=== PATIENT | male | born 1940 | race Two or more races ===

== ENCOUNTER 2024-08-29 14:13 | Inpatient (IN) | payer OTHER ==
[~2024-08-29] VITALS: Ht 152.4 cm; Wt 75.3 kg
[2024-08-29] MEDS ORDERED: MONTELUKAST SOD10 MG PO (14:35)
[2024-08-29] MEDS ORDERED: ELIQUIS5 MG PO (14:36)
[2024-08-29] MEDS ORDERED: PREVACID30 MG PO (14:36)
[2024-08-29] MEDS ORDERED: STIOLTO RESPIMAT4 G2 IH (14:36)
[2024-08-29] MEDS ORDERED: TOPROL XL50 M1 PO (14:36)
[2024-08-29] MEDS ORDERED: EZALLOR SPRINKL20 MG PO (14:36)
[2024-08-29] MEDS ORDERED: ENTRESTO 49 MG1 EACH PO (14:37)
[2024-08-29] MEDS ORDERED: ZETIA10 MG PO (14:37)
[2024-08-29] MEDS ORDERED: CHILDREN'S ASPI81 MG PO (14:38)
[2024-08-29] MEDS ORDERED: GRALISE600 MG PO (14:38)
--- NOTE | 2024-08-29 14:42 | NUR ---
PTE ALERTA Y ORIENTADO X3 ES REFERDIO POR LA DRA. MCCRAY NOLE CON HEMOGLOBINA EN 7.5 RESULTADO DE ESTA MANANA. SE MIDEN S/V Y SE UBICA.
[2024-08-29] MEDS ORDERED: FUROsemide 20 MG/2 ML VIAL IV SCH (16:45)
[2024-08-29] MEDS ORDERED: SODIUM CHLORIDE 0.45 % 500 ML IV ONE (16:45)
--- NOTE | 2024-08-29 17:01 | NUR ---
ISAURO ORIENTA A PTE SOBRE TX MEDICO ORDENADO POR JUAN. REALIZA MIKE DE MUESTRAS DE LAB [facility] ORDEN MEDICA Y BAJO MEDIDAS ASEPTICAS. VENOPUNCION X2 LT ARM PATENTE MAYCOL DE EDEMA Y ERITEMA EN H/L. SE ENTREGAN CONTRASTES PO Y SE ORIENTA SOBRE TX A SEGUIR.
[2024-08-29 17:15] LABS: HEMATOCRIT 24.2 % (39.0-48.0); MEAN CELL VOLUME 83.2 fL (80.0-100.00); MEAN CORPUSCULAR HGB CONC 33.1 g/dl (32.0-36.0); PLATELET COUNT 253 K/uL (150-450); RED BLOOD COUNT 2.91 M/uL (4.00-6.00); RED CELL DISTRIBUTION WIDTH 16.4 % (11.5-14.5)
[2024-08-29 17:16] LABS: MEAN CORPUSCULAR HEMOGLOBIN 27.4 pg (27.00-32.0)
[2024-08-29 17:30] LABS: INR 1.17; PARTIAL THROMBOPLASTIN TIME 28.7 SECONDS (22.0-34.0); PROTHROMBIN TIME 12.6 SECONDS (9.0-11.5)
[2024-08-29 17:40] LABS: ALBUMIN 3.6 gm/dL (3.4-5.0); BILIRUBIN TOTAL 0.36 mg/dL (0.3-1.2); CALCIUM 8.7 mg/dL (8.5-10.1); CREATININE SERUM 0.79 mg/dL (0.70-1.30); GFR 93.9; GLOBULINA 3.4 G/DL (2.4-3.5); POTASSIUM 4.32 mEq/L (3.5-5.1)
[2024-08-29 19:15] LABS: URINE APPEARANCE Clear; URINE BILIRRUBIN Negative (NEGATIVE); URINE BLOOD Negative; URINE COLOR Yellow; URINE GLUCOSE Negative (NEGATIVE); URINE KETONE Negative (NEGATIVE); URINE LEUKOCYTE Negative; URINE NITRATE Negative; URINE PROTEIN Negative (NEGATIVE); URINE UROBILINOGEN 0.2 E.U./dl
[2024-08-29 19:18] LABS: URINE BACTERIA 15.1 uL (0.0-1933); URINE EPITHELIAL CELLS 2.6 uL (0.0-38.8)
[2024-08-29 19:21] LABS: URINE CAST 0.15 uL (0.0-1.40); URINE RBC 1.5 uL (0.0-20.8); URINE WBC 1.2 uL (0.0-23.2)
[2024-08-29] MEDS ORDERED: 0.9 % SODIUM CHLORIDE 1,000 ML IV SCH (19:30)
[2024-08-29] MEDS ORDERED: PANTOPRAZOLE SODIUM 40 MG/VIAL VIAL IV SCH (19:33)
[2024-08-29] MEDS ORDERED: ACETAMINOPHEN 500 MG GEL..CAP PO PRN (19:45)
[2024-08-30 02:21] VITALS: BP 133/77
[2024-08-30 03:44] LABS: ob POSITIVE (NEGATIVE)
[2024-08-30] MEDS ORDERED: METOPROLOL SUCCINATE 50 MG TAB.SR.24H PO SCH (09:00)
[2024-08-30] MEDS ORDERED: PATIENTS OWN MEDICATION (MEDICAMENTO EN PISO) PO SCH (09:00)
[2024-08-30 09:31] VITALS: BP 123/70; O2SAT 99
[2024-08-30] MEDS ORDERED: GABAPENTIN 600 MG TABLET PO SCH (17:00)
[2024-08-30] MEDS ORDERED: MONTELUKAST SODIUM 10 MG TABLET PO SCH (17:00)
[2024-08-30 17:51] VITALS: BP 137/78
[2024-08-31 02:00] VITALS: BP 130/60
[2024-08-31 09:29] VITALS: BP 123/70; O2SAT 98
[2024-08-31 10:51] LABS: HEMATOCRIT 27.6 % (39.0-48.0); HEMOGLOBIN 9.2 g/dL (13-16.00); MEAN CELL VOLUME 83.9 fL (80.0-100.00); MEAN CORPUSCULAR HEMOGLOBIN 27.8 pg (27.00-32.0); MEAN CORPUSCULAR HGB CONC 33.2 g/dl (32.0-36.0); PLATELET COUNT 200 K/uL (150-450); RED BLOOD COUNT 3.29 M/uL (4.00-6.00); RED CELL DISTRIBUTION WIDTH 16.4 % (11.5-14.5)
[2024-08-31 19:59] VITALS: BP 128/61; O2SAT 99
[2024-09-01 02:29] VITALS: BP 143/67; O2SAT 96
[2024-09-01 06:25] LABS: HEMATOCRIT 28.8 % (39.0-48.0); HEMOGLOBIN 9.7 g/dL (13-16.00); MEAN CELL VOLUME 83.2 fL (80.0-100.00); MEAN CORPUSCULAR HGB CONC 33.7 g/dl (32.0-36.0); PLATELET COUNT 225 K/uL (150-450); RED BLOOD COUNT 3.47 M/uL (4.00-6.00); RED CELL DISTRIBUTION WIDTH 16.5 % (11.5-14.5)
[2024-09-01 10:35] VITALS: BP 132/65; O2SAT 93
[2024-09-01] MEDS ORDERED: FLUMAZENIL 0.5 MG/5 ML ML IV STA (12:46)
[2024-09-01] MEDS ORDERED: MIDAZOLAM HCL 2 MG/2 ML VIAL IV ONE (13:00)
[2024-09-01] MEDS ORDERED: PANTOPRAZOLE SODIUM 40 MG TABLET.DR PO SCH (17:00)
[2024-09-01] MEDS ORDERED: sulfaSALAzine 500 MG TABLET PO SCH (17:00)
[2024-09-01] MEDS ORDERED: PATIENTS OWN MEDICATION (MEDICAMENTO EN PISO) PO SCH ×2 (19:00)
[2024-09-01 19:57] VITALS: BP 128/72; O2SAT 98
[2024-09-02 03:58] VITALS: BP 112/64; O2SAT 98
[2024-09-02 08:39] LABS: HEMATOCRIT 29.9 % (39.0-48.0); MEAN CELL VOLUME 83.3 fL (80.0-100.00); MEAN CORPUSCULAR HEMOGLOBIN 27.5 pg (27.00-32.0); MEAN CORPUSCULAR HGB CONC 33.1 g/dl (32.0-36.0); PLATELET COUNT 193 K/uL (150-450); RED BLOOD COUNT 3.59 M/uL (4.00-6.00); RED CELL DISTRIBUTION WIDTH 16.7 % (11.5-14.5)
[2024-09-02 08:58] VITALS: BP 136/69; O2SAT 95
[2024-09-02] MEDS ORDERED: APIXABAN 5 MG TABLET PO SCH (09:00)
[2024-09-02 09:07] LABS: ALBUMIN 3.2 gm/dL (3.4-5.0); BILIRUBIN TOTAL 1.03 mg/dL (0.3-1.2); CALCIUM 8.7 mg/dL (8.5-10.1); CREATININE SERUM 0.73 mg/dL (0.70-1.30); GFR 102.86; GLOBULINA 3.1 G/DL (2.4-3.5); POTASSIUM 4.02 mEq/L (3.5-5.1); TOTAL PROTEIN 6.3 gm/dL (6.4-8.2)
[2024-09-02 09:32] LABS: HEMOGLOBIN 9.9 g/dL (13-16.00)
[2024-09-02] MEDS ORDERED: SOD FERRIC GLUC COMPLX/SUCROSE 62.5 MG in 0.9 % SODIUM CHLORIDE 50 ML IV SCH (17:00)
[2024-09-02 18:24] VITALS: BP 153/62; O2SAT 95
[2024-09-02] MEDS ORDERED: PIPERACILLIN/TAZOBACTAM SODIUM 3.375 GM in 0.9 % SODIUM CHLORIDE 100 ML IV SCH (21:23)
[2024-09-02] MEDS ORDERED: LACTOBACILLUS ACIDOPHILUS 1 CAP CAP PO SCH (21:24)
[2024-09-03 01:46] VITALS: BP 128/66; O2SAT 94
[2024-09-03 12:15] VITALS: BP 121/73; O2SAT 96
[2024-09-03 17:34] VITALS: BP 136/68; O2SAT 96
[2024-09-04 01:46] VITALS: BP 113/60; O2SAT 96
[2024-09-04 07:05] LABS: HEMATOCRIT 25.2 % (39.0-48.0); MEAN CELL VOLUME 83.7 fL (80.0-100.00); MEAN CORPUSCULAR HGB CONC 32.9 g/dl (32.0-36.0); PLATELET COUNT 133 K/uL (150-450); RED BLOOD COUNT 3.01 M/uL (4.00-6.00)
[2024-09-04 07:10] LABS: ALBUMIN 2.8 gm/dL (3.4-5.0); BILIRUBIN TOTAL 0.72 mg/dL (0.3-1.2); CALCIUM 8.1 mg/dL (8.5-10.1); CREATININE SERUM 0.7 mg/dL (0.70-1.30); GFR 107.96; GLOBULINA 2.8 G/DL (2.4-3.5); MAGNESIUM 1.8 mg/dL (1.8-2.4); POTASSIUM 3.86 mEq/L (3.5-5.1); TOTAL PROTEIN 5.6 gm/dL (6.4-8.2)
[2024-09-04 07:49] LABS: HEMOGLOBIN 8.3 g/dL (13-16.00); MEAN CORPUSCULAR HEMOGLOBIN 27.5 pg (27.00-32.0)
[2024-09-04 08:26] VITALS: BP 115/70
[2024-09-04 18:33] VITALS: BP 120/73
[2024-09-04] MEDS ORDERED: PATIENTS OWN MEDICATION (MEDICAMENTO EN PISO) PO SCH (19:00)
[2024-09-05 00:16] VITALS: BP 129/59; O2SAT 97
[2024-09-05 05:42] LABS: HEMATOCRIT 26.7 % (39.0-48.0); MEAN CELL VOLUME 84.2 fL (80.0-100.00); MEAN CORPUSCULAR HGB CONC 32.7 g/dl (32.0-36.0); PLATELET COUNT 165 K/uL (150-450); RED BLOOD COUNT 3.17 M/uL (4.00-6.00); RED CELL DISTRIBUTION WIDTH 16.8 % (11.5-14.5)
[2024-09-05 05:52] LABS: MEAN CORPUSCULAR HEMOGLOBIN 27.4 pg (27.00-32.0)
[2024-09-05 05:53] LABS: HEMOGLOBIN 8.7 g/dL (13-16.00)
[2024-09-05 07:42] VITALS: BP 117/66; O2SAT 96
[2024-09-05 18:04] VITALS: BP 160/80
[2024-09-06 00:12] VITALS: BP 145/77; O2SAT 97
[2024-09-06 09:00] VITALS: BP 125/75; O2SAT 94
[2024-09-06 09:19] LABS: HEMATOCRIT 30.3 % (39.0-48.0); HEMOGLOBIN 9.7 g/dL (13-16.00); MEAN CELL VOLUME 84.6 fL (80.0-100.00); MEAN CORPUSCULAR HEMOGLOBIN 27.1 pg (27.00-32.0); PLATELET COUNT 148 K/uL (150-450); RED BLOOD COUNT 3.58 M/uL (4.00-6.00); RED CELL DISTRIBUTION WIDTH 17.2 % (11.5-14.5)
[2024-09-06 18:10] VITALS: BP 140/70
[2024-09-07 01:48] VITALS: BP 143/63; O2SAT 99
[2024-09-07 06:20] LABS: HEMATOCRIT 24.2 % (39.0-48.0); MEAN CELL VOLUME 83.3 fL (80.0-100.00); MEAN CORPUSCULAR HGB CONC 33.1 g/dl (32.0-36.0); RED CELL DISTRIBUTION WIDTH 17.1 % (11.5-14.5)
[2024-09-07 06:48] LABS: ALBUMIN 2.6 gm/dL (3.4-5.0); BILIRUBIN TOTAL 0.49 mg/dL (0.3-1.2); CALCIUM 7.4 mg/dL (8.5-10.1); CREATININE SERUM 0.65 mg/dL (0.70-1.30); GFR 117.6; GLOBULINA 2.5 G/DL (2.4-3.5); MAGNESIUM 1.5 mg/dL (1.8-2.4); POTASSIUM 3.05 mEq/L (3.5-5.1); TOTAL PROTEIN 5.1 gm/dL (6.4-8.2)
[2024-09-07 08:00] LABS: MEAN CORPUSCULAR HEMOGLOBIN 27.5 pg (27.00-32.0)
[2024-09-07 08:01] LABS: PLATELET COUNT 116 K/uL (150-450)
[2024-09-07 08:53] VITALS: BP 129/72; O2SAT 95
[2024-09-07 17:46] VITALS: BP 157/76
[2024-09-07 20:30] LABS: HEMATOCRIT 29.9 % (39.0-48.0); MEAN CELL VOLUME 83.7 fL (80.0-100.00); MEAN CORPUSCULAR HGB CONC 32.6 g/dl (32.0-36.0); PLATELET COUNT 175 K/uL (150-450); RED BLOOD COUNT 3.57 M/uL (4.00-6.00); RED CELL DISTRIBUTION WIDTH 16.8 % (11.5-14.5)
[2024-09-07 20:37] LABS: MEAN CORPUSCULAR HEMOGLOBIN 27.1 pg (27.00-32.0)
[2024-09-07 20:38] LABS: HEMOGLOBIN 9.7 g/dL (13-16.00)
[2024-09-08 00:42] VITALS: BP 146/66; O2SAT 98
[2024-09-08 04:47] LABS: HEMATOCRIT 27.2 % (39.0-48.0); MEAN CELL VOLUME 82.1 fL (80.0-100.00); MEAN CORPUSCULAR HGB CONC 33.8 g/dl (32.0-36.0); RED BLOOD COUNT 3.31 M/uL (4.00-6.00); RED CELL DISTRIBUTION WIDTH 16.8 % (11.5-14.5)
[2024-09-08 04:48] LABS: HEMOGLOBIN 9.2 g/dL (13-16.00); MEAN CORPUSCULAR HEMOGLOBIN 27.7 pg (27.00-32.0); PLATELET COUNT 128 K/uL (150-450)
[2024-09-08 08:47] VITALS: BP 162/70; O2SAT 96
[2024-09-08] MEDS ORDERED: SOD FERRIC GLUC COMPLX/SUCROSE 62.5 MG/5 ML AMPUL IV SCH (09:00)
[2024-09-08 16:34] VITALS: BP 131/65
[2024-09-09 02:36] VITALS: BP 155/75; O2SAT 95
[2024-09-09 08:40] LABS: HEMATOCRIT 28.3 % (39.0-48.0); HEMOGLOBIN 9.3 g/dL (13-16.00); MEAN CELL VOLUME 83.3 fL (80.0-100.00); MEAN CORPUSCULAR HEMOGLOBIN 27.4 pg (27.00-32.0); MEAN CORPUSCULAR HGB CONC 32.9 g/dl (32.0-36.0); PLATELET COUNT 140 K/uL (150-450); RED BLOOD COUNT 3.41 M/uL (4.00-6.00); RED CELL DISTRIBUTION WIDTH 17.1 % (11.5-14.5)
[2024-09-09 09:10] VITALS: BP 138/69; O2SAT 94
[2024-09-09 09:34] VITALS: BP 150/86; O2SAT 99
[2024-09-09 17:22] VITALS: BP 170/60; O2SAT 94
[2024-09-10] MEDS ORDERED: ENALAPRILAT DIHYDRATE 1.25 MG/ML VIAL IV PRN (01:45)
[2024-09-10 02:25] VITALS: BP 150/85; O2SAT 94
[2024-09-10 09:40] VITALS: BP 167/81; O2SAT 97
[2024-09-10] MEDS ORDERED: IRBESARTAN 150 MG TABLET PO SCH (12:45)
[2024-09-10 13:53] LABS: HEMATOCRIT 33.8 % (39.0-48.0); HEMOGLOBIN 11.1 g/dL (13-16.00); MEAN CELL VOLUME 83.9 fL (80.0-100.00); MEAN CORPUSCULAR HEMOGLOBIN 27.6 pg (27.00-32.0); MEAN CORPUSCULAR HGB CONC 32.9 g/dl (32.0-36.0); PLATELET COUNT 158 K/uL (150-450); RED BLOOD COUNT 4.03 M/uL (4.00-6.00); RED CELL DISTRIBUTION WIDTH 17.7 % (11.5-14.5)
[2024-09-10 15:00] LABS: ALBUMIN 3.3 gm/dL (3.4-5.0); BILIRUBIN TOTAL 1.19 mg/dL (0.3-1.2); CALCIUM 8.9 mg/dL (8.5-10.1); CREATININE SERUM 0.7 mg/dL (0.70-1.30); GFR 107.96; GLOBULINA 3.2 G/DL (2.4-3.5); POTASSIUM 3.44 mEq/L (3.5-5.1); TOTAL PROTEIN 6.5 gm/dL (6.4-8.2)
[2024-09-10 16:44] VITALS: BP 175/83; O2SAT 93
[2024-09-10] MEDS ORDERED: POTASSIUM BICARBONATE/CIT AC 25 MEQ TABLET.EFF PO SCH (17:00)
[2024-09-10] MEDS ORDERED: ELIQUIS5 MG PO (17:23)
[2024-09-10] MEDS ORDERED: ENTRESTO 49 MG1 EACH PO (17:23)
[2024-09-10] MEDS ORDERED: NEURONTIN600 MG PO (17:24)
[2024-09-10] MEDS ORDERED: ST. JOSEPH ASPI81 M2 PO (17:24)
[2024-09-10] MEDS ORDERED: TOPROL XL50 M1 PO (17:24)
[2024-09-10] MEDS ORDERED: MONTELUKAST SOD10 MG PO (17:25)
[2024-09-10] MEDS ORDERED: INTESTINEX680 M1 PO (17:25)
[2024-09-10] MEDS ORDERED: ROSUVASTATIN CA20 MG PO (17:26)
[2024-09-10] MEDS ORDERED: ZETIA10 MG PO (17:27)
[2024-09-10] MEDS ORDERED: PREVACID30 MG PO (17:31)
[2024-09-10] MEDS ORDERED: AMOX-CLAV 875-1 EAC1 PO (17:31)
[2024-09-11] MEDS ORDERED: ASPIRIN 81 MG TABLET.EC PO SCH (09:00)
== END 2024-09-10 20:26 | disposition home or self-care (01) | DRG 812 ==
LOC: ER 14:13 → MEDJ 20:33
PROVIDERS: Internal Medicine; Internal Medicine Gastroenterology; Nurse Practitioner Family; ADMIT Internal Medicine; ATTEND Internal Medicine
PROC: BW21YZZ Computerized Tomography (CT Scan) of Abdomen and Pelvis using Other Contrast (ICD-10-PCS; 2024-08-29)
PROC: 30233N1 Transfusion of Nonautologous Red Blood Cells into Peripheral Vein, Percutaneous Approach (ICD-10-PCS; principal; 2024-08-30)
PROC: B246ZZZ Ultrasonography of Right and Left Heart (ICD-10-PCS; 2024-08-31)
PROC: 0DB68ZX Excision of Stomach, Via Natural or Artificial Opening Endoscopic, Diagnostic (ICD-10-PCS; 2024-09-01)
PROC: 0DB78ZX Excision of Stomach, Pylorus, Via Natural or Artificial Opening Endoscopic, Diagnostic (ICD-10-PCS; 2024-09-01)
PROC: BL40ZZZ Ultrasonography of Upper Extremity Connective Tissue (ICD-10-PCS; 2024-09-02)
DX: D50.8 Other iron deficiency anemias (principal); K92.1 Melena; I48.20 Chronic atrial fibrillation, unspecified; D64.89 Other specified anemias; K29.40 Chronic atrophic gastritis without bleeding; K29.60 Other gastritis without bleeding; K44.9 Diaphragmatic hernia without obstruction or gangrene; M70.22 Olecranon bursitis, left elbow; M79.671 Pain in right foot; M25.522 Pain in left elbow; M25.422 Effusion, left elbow; M46.1 Sacroiliitis, not elsewhere classified; I11.9 Hypertensive heart disease without heart failure; I25.10 Atherosclerotic heart disease of native coronary artery without angina pectoris; Z79.01 Long term (current) use of anticoagulants; Z95.2 Presence of prosthetic heart valve; Z95.0 Presence of cardiac pacemaker; Z87.891 Personal history of nicotine dependence